=== PATIENT | male | born 1940 | race Two or more races ===

== ENCOUNTER → 2024-05-10 | Outpatient (BNVA) | payer OTHER, SELFPAY | END | disposition home or self-care (01) | PROVIDERS: PCP Internal Medicine; Referring Provider Internal Medicine; Visit Provider Urology | DX: N40.0 Benign prostatic hyperplasia without lower urinary tract symptoms (principal); Z87.442 Personal history of urinary calculi; I10 Essential (primary) hypertension | CPT/HCPCS: 81003; 99212; G0463 ==

== ENCOUNTER → 2024-06-07 | Outpatient (BNVA) | payer OTHER, SELFPAY | END | disposition home or self-care (01) | PROVIDERS: PCP Internal Medicine; Referring Provider Internal Medicine; Visit Provider Urology | DX: N40.1 Benign prostatic hyperplasia with lower urinary tract symptoms (principal); N13.8 Other obstructive and reflux uropathy; R39.198 Other difficulties with micturition; I10 Essential (primary) hypertension | CPT/HCPCS: 76872 ==

== ENCOUNTER → 2024-06-13 | Outpatient (BNVA) | payer OTHER, SELFPAY | END | disposition home or self-care (01) | PROVIDERS: PCP Internal Medicine; Referring Provider Internal Medicine; Visit Provider Urology | DX: N32.89 Other specified disorders of bladder (principal); N32.3 Diverticulum of bladder; N40.1 Benign prostatic hyperplasia with lower urinary tract symptoms; N13.8 Other obstructive and reflux uropathy; I10 Essential (primary) hypertension | CPT/HCPCS: 52000; 81003; 96372; A4217; A4649; C1894; J1580; A9270 ==

== ENCOUNTER → 2024-06-17 | Outpatient (BNVA) | payer OTHER, SELFPAY | END | disposition home or self-care (01) | PROVIDERS: PCP Internal Medicine; Referring Provider Internal Medicine; Visit Provider Urology | DX: N40.1 Benign prostatic hyperplasia with lower urinary tract symptoms (principal); R35.0 Frequency of micturition; I10 Essential (primary) hypertension; Z87.442 Personal history of urinary calculi; R73.03 Prediabetes | CPT/HCPCS: 99212; 99213; G0463 ==

== ENCOUNTER → 2024-06-27 | Outpatient (CLI) | payer OTHER, SELFPAY ==
--- NOTE | 2024-06-27 14:57 | XR_ITS ---
Examination: PA lateral chest 2 views TECHNIQUE: Upright PA lateral chest 2 views Exam date and time: June 27, 2024 at 1648 hours Comparison June 05, 2022 INDICATIONS: Preop FINDINGS: Normal heart size No pneumonia or pulmonary edema The osseous structures are intact IMPRESSION: No active disease
== END | disposition home or self-care (01) ==
PROVIDERS: PCP Family Medicine; Referring Provider Student in an Organized Health Care Education/Training Program; Visit Provider Student in an Organized Health Care Education/Training Program
DX: Z01.818 Encounter for other preprocedural examination (principal)
CPT/HCPCS: 71046

== ENCOUNTER → 2024-06-30 | Outpatient (BNVA) | payer OTHER, SELFPAY | END | disposition home or self-care (01) | PROVIDERS: PCP Internal Medicine; Referring Provider Internal Medicine; Visit Provider Urology | DX: N40.1 Benign prostatic hyperplasia with lower urinary tract symptoms (principal); R39.12 Poor urinary stream; I10 Essential (primary) hypertension | CPT/HCPCS: 51741; 51798 ==

== ENCOUNTER → 2024-08-16 | Outpatient (BNVA) | payer OTHER, MEDICAID, SELFPAY | END | disposition home or self-care (01) | PROVIDERS: PCP Internal Medicine; Referring Provider Internal Medicine; Visit Provider Urology | DX: N40.0 Benign prostatic hyperplasia without lower urinary tract symptoms (principal); Z87.442 Personal history of urinary calculi; Z46.6 Encounter for fitting and adjustment of urinary device; I10 Essential (primary) hypertension | CPT/HCPCS: 99212; G0463 ==